=== PATIENT | female | born 1960 | race Asian ===

== ENCOUNTER → 2023-07-05 | Outpatient (CLI) | payer BC ==
[2023-07-05 06:46] LABS: Basophils # (auto) 0 10 ^3/uL (0-0.2); Basophils % (auto) 0.3 % (0.0-2.0); Eosinophils # (auto) 0 10 ^3/uL (0-0.8); Eosinophils % (auto) 0.1 % (0.0-7.0); Hematocrit 42.1 % (36.0-46.0); Lymphocytes # (auto) 3.6 10 ^3/uL (0.4-5.4); Lymphocytes % (auto) 35.7 % (10.0-50.0); Mean Corpuscular Hemoglobin 30.3 pg (28.0-32.0); Mean Corpuscular Hgb Conc. 33.3 g/dL (32.0-36.0); Monocytes # (auto) 0.6 10 ^3/uL (0-1.3); Monocytes % (auto) 6.3 % (0.0-12.0); Neutrophils # (auto) 5.8 10 ^3/uL (1.6-8.6); Neutrophils % (auto) 57.6 % (37.0-80.0); Nucleated Red Blood Cells % 0.1 %; Red Blood Cells 4.62 10^6/uL (4.0-5.20)
[2023-07-05 07:10] LABS: Alanine Aminotransferase 26 U/L (7-40); Albumin 4.9 g/dL (3.2-4.8); Alkaline Phosphatase 96 U/L (46-116); Anion Gap 8 (5-15); Aspartate Aminotransferase 24 U/L (13-40); BUN/Creatinine Ratio 10.4 (10.0-20.0); Bilirubin, Total 0.7 mg/dL (0.2-1.0); Blood Urea Nitrogen 8 mg/dL (9-23); Calcium 9.7 mg/dL (8.5-10.1); Carbon Dioxide 28 mmol/L (20-30); Chloride 108 mmol/L (98-107); Cholesterol 180 mg/dL (< 200); Glucose 97 mg/dL (74-106); HDL Cholesterol 60 mg/dL (40-59); LDL Cholesterol 106 mg/dL (< 100); Potassium 3.7 mmol/L (3.5-5.1); Sodium 144 mmol/L (136-145); Total Protein 8.4 g/dL (5.7-8.2); Triglycerides 104 mg/dL (< 150)
== END | disposition home or self-care (01) ==
LOC: LAB 06:03
PROVIDERS: ATTEND Internal Medicine
DX: J10.1 Influenza due to other identified influenza virus with other respiratory manifestations (principal)
CPT/HCPCS: 36415; 80053; 80061; 84443; 85025

== ENCOUNTER → 2023-07-10 | Outpatient (CLI) | payer BC | END | disposition home or self-care (01) | LOC: LAB 05:55 | PROVIDERS: ATTEND Internal Medicine | DX: J10.1 Influenza due to other identified influenza virus with other respiratory manifestations (principal) | CPT/HCPCS: 82270 ==

== ENCOUNTER 2024-06-10 00:04 | Emergency (ER) | payer BC ==
[~2024-06-10] VITALS: Ht 157.5 cm; Wt 66.4 kg
[2024-06-10 00:46] VITALS: BP 162/78; PULSE 108; RESP 16; O2SAT 97
[2024-06-10] MEDS ORDERED: BACDST PO (01:00)
[2024-06-10] MEDS: SULFAMETHOX W/TRIMETH(800/160MG) DS TAB PO ONE (01:05)
--- NOTE | 2024-06-10 01:05 | ED.PDOC ---
General HPI Comments 63 year old female presents to the ED with a chief complaint of painful urination onset yesterday around 21:00. Patient states she noticed painful urination,hematuria and frequency since 21:00. Denies fever, chills, abdominal pain, flank pain, back pain, nausea, vomiting, diarrhea. No other symptoms or modifying factors present at this time. Chief Complaint: Urinary Time Seen by MD: 00:58 Reviewed notes: Medications, Allergies Allergies: Coded Allergies: NO KNOWN ALLERGIES (Unverified , 06/10/24) Home Meds Active Scripts Sulfamethoxazole W/Trimethopri (Bactrim Ds Tablet) 1 Tab Tb, 1 TAB PO BID for 10 Days, #20 TAB Prov:JOSEFINA LOPEZ MD 06/10/24 Information Source: Patient Mode of Arrival: Ambulatory Severity: Moderate Timing: Hours Duration: Since onset Prehospital treatment: None Onset: Spontaneous Symptoms: Dysuria, Frequency, Hematuria History of: UTI Location: None Modifying factors: None associated signs and symptoms: Dysuria, Frequency, Hematuria Past Medical History PAST MEDICAL HISTORY: UTI'S Surgical History: Cholecystectomy, 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 History Family History Family History: Reviewed,noncontributory to illness, No family hx of Cancer, No family hx of DM, No family hx of Heart mariana, No family hx of HTN, No family hx ofKidney mariana, No family hx of Liver mariana, No family hx of Lung mariana, No family hx of Stroke Social History Smoker: Non-Smoker Alcohol: Denies ETOH Use Drugs: Denies Drug Use Lives In: Home Constitutional: denies: chills, diaphoresis, fatigue, fever, malaise, sweats, weakness, others EENTM: denies: blurred vision, double vision, ear bleeding, ear discharge, ear drainage, ear pain, ear ringing, eye pain, eye redness, hearing loss, mouth pain, mouth swelling, nasal discharge, nose bleeding, nose congestion, nose pain, photophobia, tearing, throat pain, throat swelling, voice changes, others Respiratory: denies: cough, hemoptysis, orthopnea, SOB at rest, shortness of breath, SOB with excertion, stridor, wheezing, others Gastrointestinal: denies: abdomen distended, abdominal pain, blood streaked bowels, constipated, diarrhea, dysphagia, difficulty swallowing, hematemesis, melena, nausea, poor appetite, poor fluid intake, rectal bleeding, rectal pain, vomiting, others Genitourinary: reports: burning, dysuria, frequency, hematuria; denies: abnormal vagina bleeding, dyspareunia, flank pain, incontinence, pain, , vagina discharge, urgency, others Neurological: denies: dizziness, fainting, headache, left sided numbness, left sided weakness, numbness, paresthesia, pre-existing deficit, right sided numbness, right sided weakness, seizure, speech problems, tingling, tremors, weakness, others Musculoskeletal: denies: back pain, gout, joint pain, joint swelling, muscle pain, muscle stiffness, neck pain, others Integumetry: denies: bruises, change in color, change in hair/nails, dryness, laceration, lesions, lumps, rash, wounds, others Allergic/Immunocompromised: denies: Difficulty Healing, Frequent Infections, Hives, Itching, others Hematologic/Lymphatic: denies: anemia, blood clots, easy bleeding, easy bruising, swollen glands, others Endocrine: denies: excessive hunger, excessive sweating, excessive thirst, excessive urination, flushing, intolerance to cold, intolerance to heat, unexplained weight gain, unexplained weight loss, others Psychiatric: denies: anxiety, bipolar disorder, depression, hopeless, panic disorder, schizophrenia, sleepless, suicidal, others All Other Systems: Reviewed and Negative Physical Exam General Appearance: Mild Distress, Normal HEENT: Normal ENT Inspection, Pharynx Normal, TMs Normal Neck: Full Range of Motion, Non-Tender, Normal, Normal Inspection Respiratory: Chest Non-Tender, Lungs Clear, No Accessory Muscle Use, No Respiratory Distress, Normal Breath Sounds Cardiovascular: No Edema, No JVD, No Murmur, No Gallop, Normal Peripheral Pulses, Regular Rate/Rhythm Breast Exam: Deferred Gastrointestinal: No Organomegaly, Non Tender, No Pulsatile Mass, Normal Bowel Sounds, Soft Genitalia: Deferred Pelvic: Deferred Rectal: Deferred Extremities: No calf tenderness, Normal capillary refill, Normal inspection, Normal range of motion, Non-tender, No pedal edema Musculoskeletal : Apperance: Normal Neurologic: Alert, hvac operations technician II-XII nml as Tested, No Motor Deficits, Normal Affect, Normal Mood, No Sensory Deficits Cerebellar Function: Normal Reflexes: Normal Skin: Dry, Normal Color, Warm Lymphatic: No Adenopathy Was a procedure done? Was a procedure done?: No Differential Diagnosis Kidney stone (Female): Pyelonephritis, Renal failure, Urinary obstruction, Urolithiasis Urinary Problem (Male): Bladder Outlet, Urethritis, Urinary Retention Urinary Problem (Female): Urolithiasis, UTI, Vaginitis, Other X-Ray, Labs, Meds, VS Vital Signs Date Time Temp Pulse Resp B/P (MAP) Pulse Ox O2 Delivery O2 Flow Rate FiO2 06/10/24 00:46 98.3 108 16 162/78 (106) 97 Lab Test 06/09/24 23:30 Range/Units Urine Color Colorless Yellow Urine Clarity Turbid H Clear Urine pH 6.0 5.0-9.0 Urine Specific [place] 1.002 1.001-1.035 Urine Protein 1+ H Negative Urine Ketones Negative Negative Urine Blood 3+ H Negative /uL Urine Nitrite Negative Negative Urine Bilirubin Negative Negative Urine Urobilinogen Normal Negative mg/dL Urine Leukocyte Esterase 3+ Negative /uL Urine RBC 6 0 - 4 /hpf Urine WBC 79 0 - 5 /hpf Urine WBC Clumps Present None Seen /hpf Urine Squamous Epithelial Cells Few <5 /hpf Urine Bacteria Few H None Seen /hpf Urine Glucose Normal Normal mg/dL Current Medications Medications (Trade) Dose Ordered Sig/José Miguel Route Start Time Stop Time Status Last Admin Trimethoprim/ Sulfamethoxazole (Bactrim Ds Tablet) 1 tab ONCE ONCE PO 06/10/24 01:00 06/10/24 01:01 DC 06/10/24 01:05 Time of 1ST Reevaluation: 01:28 Reevaluation 1ST: Unchanged Time of 2ND Reevaluation: 02:30 Reevaluation 2ND: Improved Patient Education/Counseling: Diagnosis, Treatment, Prognosis Family Education/Counseling: No Family Present Additional Information I reviewed the following notes from patient's past medical encounters: The following tests were ordered, and results were reviewed by me: TINA I discussed treatment and results with medical personnel and: patient Departure 1 Departure Time of Disposition: 02:30 Impression: Primary Impression: UTI (urinary tract infection) Disposition: 01 HOME / SELF CARE / HOMELESS Condition: Stable Additional Instructions: Follow up with your primary physician Return to the ED for any worsening symptoms or concerns e-Prescriptions Sulfamethoxazole W/Trimethopri (Bactrim Ds Tablet) 1 Tab Tb 1 TAB PO BID for 10 Days, #20 TAB Prov: JOSEFINA LOPEZ MD 06/10/24 Discharged With: Self Critical Care Note Critical Care Time?: No Stability Stability form required: No I personally scribed for JOSEFINA LPOEZ MD ([email or web address]) on 06/10/24 at 01:05. Electronically submitted by Myriam Felix ([email or web address]). I personally scribed for JOSEFINA LOPEZ MD ([email or web address]) on 06/10/24 at 01:05. Electronically submitted by Myriam Felix ([email or web address]). I personally scribed for JOSEFINA LOPEZ MD ([email or web address]) on 06/10/24 at 01:15. Electronically submitted by Myriam Felix ([email or web address]). JOSEFINA LOPEZ MD Jun 10, 2024 01:05
[2024-06-10 01:07] LABS: Urine Bacteria FEW /hpf (None Seen); Urine Blood 3+ /uL (Negative); Urine Clarity Turbid (Clear); Urine Color Colorless (Yellow); Urine Protein, UAD 1+ (Negative); Urine Specific Gravity 1.002 (1.001-1.035); Urine Squamous Epithelial Cell FEW /hpf (<5); Urine Urobilinogen Normal (Negative); Urine WBC 79 /hpf (0 - 5); Urine WBC Clumps PRESENT /hpf (None Seen)
== END 2024-06-10 01:17 | disposition home or self-care (01) ==
LOC: EEVIPCON 00:04 → ER 00:04
DX: N39.0 Urinary tract infection, site not specified (principal); Z90.49 Acquired absence of other specified parts of digestive tract; Z98.890 Other specified postprocedural states
CPT/HCPCS: 81001

== ENCOUNTER 2024-11-26 07:24 | Outpatient (CLI) | payer BC ==
[~2024-11-26 07:24] MED LIST: BACDST PO
== END 2024-11-26 17:00 | disposition home or self-care (01) ==
LOC: LAB 07:24
PROVIDERS: ATTEND Family Medicine
DX: R14.0 Abdominal distension (gaseous) (principal); Z11.3 Encounter for screening for infections with a predominantly sexual mode of transmission; Z12.11 Encounter for screening for malignant neoplasm of colon; Z13.89 Encounter for screening for other disorder; Z00.01 Encounter for general adult medical examination with abnormal findings
CPT/HCPCS: 82270

== ENCOUNTER 2025-02-05 06:23 | Outpatient (CLI) | payer BC ==
[2025-02-05 06:58] LABS: Anion Gap 9.0 (5-15); Calcium 9.7 mg/dL (8.7-10.4); Carbon Dioxide 29.0 mmol/L (20-31); Chloride 104.0 mmol/L (98-107); Potassium 4.2 mmol/L (3.5-5.1); Sodium 142.0 mmol/L (136-145)
[2025-02-05 07:03] LABS: Albumin 4.7 g/dL (3.2-4.8)
[2025-02-05 07:04] LABS: BUN/Creatinine Ratio 13.3 (10.0-20.0); Blood Urea Nitrogen 10.0 mg/dL (9-23)
[2025-02-05 07:05] LABS: Glucose 107.0 mg/dL (74-106); Triglycerides 264.0 mg/dL (< 150)
[2025-02-05 07:09] LABS: Cholesterol 210.0 mg/dL (< 200)
[2025-02-05 08:22] LABS: HDL Cholesterol 52.0 mg/dL (40-59)
[2025-02-05 10:46] LABS: Microalb/Creat Ratio, Urine 8.00
== END 2025-02-05 17:00 | disposition home or self-care (01) ==
LOC: LAB 06:23
PROVIDERS: ATTEND Family Medicine
DX: E78.2 Mixed hyperlipidemia (principal); E88.819 Insulin resistance, unspecified
CPT/HCPCS: 36415; 80061; 80069; 82043; 82570; 83036